=== PATIENT | male | born 1995 | race African-American/Black ===

== ENCOUNTER 2016-07-22 21:51 | Inpatient (IN) | payer SELFPAY ==
[~2016-07-22] VITALS: Ht 167.6 cm; Wt 63.6 kg
[2016-07-22 22:10] LABS: BASOPHILS # (AUTO) 0.02 K/uL (0.00-0.20); BASOPHILS % (AUTO) 0.5 % (0.0-2.0); EOSINOPHILS # (AUTO) 0.05 K/uL (0.00-0.70); EOSINOPHILS % (AUTO) 1.01 % (1.0-6.0); HEMATOCRIT 42.6 % (41-53); HEMOGLOBIN 14.5 g/dL (13.5-17.5); LYMPHOCYTES # (AUTO) 1.7 K/uL (1.0-4.8); LYMPHOCYTES % (AUTO) 32.6 % (22.0-44.0); MEAN CORPUSCULAR HEMOGLOBIN 29.3 pg (26.0-34.0); MEAN CORPUSCULAR HGB CONC 34.1 G/dL (31.0-37.0); MEAN CORPUSCULAR VOLUME 86 fL (80-100); MONOCYTES # (AUTO) 0.6 K/uL (0.1-1.0); NEUTROPHILS # (AUTO) 2.8 K/uL (1.8-7.7); NEUTROPHILS % (AUTO) 54.9 % (40.0-70.0); PLATELET COUNT (AUTO) 164 K/uL (150-450); RED BLOOD CELL COUNT(AUTO) 4.96 MIL/uL (4.50-5.90); RED CELL DISTRIBUTION WIDTH 13.4 % (11.5-14.5); WHITE BLOOD COUNT (AUTO) 5.2 K/uL (4.5-11.0)
[2016-07-22 22:18] LABS: ANION GAP 12 mmol/L (8-16); CALCIUM, TOTAL 8.8 mg/dL (8.8-10.5); CARBON DIOXIDE 26 mmol/L (22-29); CHLORIDE 106 mmol/L (98-107); CREATININE 1.06 mg/dL (0.60-1.30); GLOMERULAR FILTR. RATE CALC > 60 mL/min (>60); POTASSIUM 3.1 mmol/L (3.5-5.1); SODIUM SERUM 144 mmol/L (136-145); UREA NITROGEN, BLOOD 10 mg/dL (7-18)
[2016-07-22 22:26] LABS: ALANINE AMINOTRANSFERASE 14 U/L (12-78); ALBUMIN 3.9 g/dL (3.4-5.0); ASPARTATE AMINOTRANSFERASE 18 U/L (15-37); BILIRUBIN,TOTAL 0.7 mg/dL (0.1-1.0); TOTAL PROTEIN, SERUM 7.3 g/dL (6.4-8.2)
[2016-07-22 22:40] LABS: ACETAMINOPHEN < 2 mcg/mL (10-30)
[2016-07-22 23:03] LABS: SALICYLATE < 2.8 mg/dL (2.8-20.0)
[2016-07-23] MEDS ORDERED: HALOPERIDOL LACTATE 5 MG/ML VIAL ONE (05:08)
[2016-07-23] MEDS ORDERED: LORazepam 2 MG/ML VIAL ONE (05:08)
[2016-07-23] MEDS ORDERED: DiphenhydrAMINE HCL 50 MG/ML VIAL ONE (05:08)
[2016-07-23] MEDS ORDERED: DiphenhydrAMINE HCL 50 MG/ML VIAL IM ONE (05:15)
[2016-07-23] MEDS ORDERED: HALOPERIDOL LACTATE 5 MG/ML VIAL IM ONE (05:15)
[2016-07-23] MEDS ORDERED: LORazepam 2 MG/ML VIAL IM ONE (05:15)
[2016-07-23] MEDS ORDERED: HALOPERIDOL 5 MG TABLET PO PRN (05:30)
[2016-07-23] MEDS ORDERED: LORazepam 2 MG TABLET PO PRN (05:30)
[2016-07-23] MEDS ORDERED: ZOLPIDEM TARTRATE 10 MG TABLET PO PRN (05:30)
[2016-07-23 05:52] VITALS: BP 121/69
[2016-07-23] MEDS ORDERED: POTASSIUM CHLORIDE 20 MEQ ER TABLET PO ONE ×2 (06:00→07:30)
[2016-07-23 06:39] VITALS: BP 106/64
[2016-07-23] MEDS: SERTRALINE HCL 50 MG TABLET PO SCH (09:15)
[2016-07-23 16:11] VITALS: BP 111/70
[2016-07-23] MEDS ORDERED: INFLUENZA VIRUS VACCINE QVS 2016-17 (3YR+)/PF 60 MCG/0.5 ML SYRINGE IM ONE (22:30)
[2016-07-24 06:41] VITALS: BP 138/71
[2016-07-24 08:12] VITALS: BP 129/72
[2016-07-24 08:27] LABS: ANION GAP 11 mmol/L (8-16); CALCIUM, TOTAL 8.7 mg/dL (8.8-10.5); CARBON DIOXIDE 26 mmol/L (22-29); CHLORIDE 104 mmol/L (98-107); CREATININE 1.16 mg/dL (0.60-1.30); GLOMERULAR FILTR. RATE CALC > 60 mL/min (>60); POTASSIUM 3.6 mmol/L (3.5-5.1); SODIUM SERUM 141 mmol/L (136-145); UREA NITROGEN, BLOOD 19 mg/dL (7-18)
[2016-07-24] MEDS: SERTRALINE HCL 50 MG TABLET PO SCH (09:26)
[2016-07-24] MEDS ORDERED: SERT50TA12 PO (12:45)
== END 2016-07-24 14:05 | disposition home or self-care (01) | DRG 885 ==
LOC: EMS 21:55 → B3A 07-23 05:15
DX: F33.2 Major depressive disorder, recurrent severe without psychotic features (principal); R45.851 Suicidal ideations; F12.90 Cannabis use, unspecified, uncomplicated; Z91.5 Personal history of self-harm; Z72.89 Other problems related to lifestyle; Z78.1 Physical restraint status; Z28.21 Immunization not carried out because of patient refusal
CPT/HCPCS: 90471; 93005; 99285; G0480; G0481; J1200; J1630; J2060